=== PATIENT | female | born 1990 | race Caucasian/White ===

== ENCOUNTER → 2022-11-14 09:14 | Outpatient (BNVA) | payer BC, SELFPAY | PROVIDERS: Family Provider Family Medicine; PCP Family Medicine; Visit Provider Obstetrics & Gynecology | DX: Z30.9 Encounter for contraceptive management, unspecified (principal) | CPT/HCPCS: 87070; 87205 ==

== ENCOUNTER → 2022-12-02 12:07 | Outpatient (BNVA) | payer BC, MEDICAID, SELFPAY | PROVIDERS: Family Provider Family Medicine; PCP Family Medicine; Visit Provider Obstetrics & Gynecology | DX: N93.9 Abnormal uterine and vaginal bleeding, unspecified (principal); N85.2 Hypertrophy of uterus | CPT/HCPCS: 76830 ==

== ENCOUNTER 2023-02-16 12:00 | Outpatient (CLI) | payer BC, MEDICAID, SELFPAY | END 2023-02-16 12:01 | disposition home or self-care (01) | LOC: SLEEP 02-17 15:21 | PROVIDERS: Family Provider Family Medicine; PCP Family Medicine; Visit Provider Family Medicine | DX: R40.0 Somnolence (principal); G47.33 Obstructive sleep apnea (adult) (pediatric) | CPT/HCPCS: G0399 ==

== ENCOUNTER 2023-03-03 11:28 | Day surgery (SDC) | payer BC, MEDICAID, SELFPAY ==
[2023-03-02 09:01] VITALS: BMI 61.9
[2023-03-03] VITALS (8 sets, daily range): BP systolic 107–152; BP diastolic 79–97; PULSE 75–92; RESP 14–18; TEMP 36.2–36.4; O2SAT 91–99
[2023-03-03 12:06] LABS: OR HCG Qualitative Urine Negative (Negative)
[2023-03-03] MEDS: sodium chloride 0.9% 1,000 ML 30 ML IV (12:38)
--- NOTE | 2023-03-03 13:03 | ANES.PREANE2 ---
Pre-Anesthetic Assessment Height/Weight: Height 1.6 m Weight 158.757 kg Temp Pulse Resp BP Pulse Ox O2 Del Method 97.4 F L 90 18 136/85 96 Room Air 03/03/23 12:02 03/03/23 12:02 03/03/23 12:02 03/03/23 12:02 03/03/23 12:02 03/03/23 12:02 Preop Diagnosis: AUB Operation Date: 03/03/23 12:50 Proposed Procedures p Hysteroscopy, dilation and curettage with [place] [id number], N93.9(Not Applicable) - Nadira Vigil MD s Dilation And Curettage (D&C)(Not Applicable) - Nadira Vigil MD Was Beta Chevy taken within 24 hours: Yes Last intake: Intake Last Liquid Date 03/02/23 Last Liquid Time 22:30 Last Solid Date 03/02/23 Last Solid Time 22:30 Social Tobacco and No alcohol Exam alert, oriented x 3, clear to auscultation bilaterally and regular rate & rhythm Airway Submandibular: within normal limits Cervical ROM: within normal limits Mallampati: Class II Dentition: full Pulmonary Chronic Obstructive Pulmonary Disease and Sleep Apnea CV/HEM Hypertension Neuropsych Anxiety and Depression Anesthetic Plan ASA status: 3 Anesthesia: General Medications/Allergies Home Medications Medication Instructions Recorded Confirmed Last Taken Type albuterol sulfate 90 mcg/actuation 2 puff inhalation Q6H PRN 12/17/22 03/03/23 03/03/23 Rx aerosol inhaler (Ventolin HFA) shortness of breath or wheezing #8.5 grams fluticasone propionate 50 1 spray intranasal DAILY #16 grams 12/17/22 03/02/23 03/02/23 Rx mcg/actuation nasal spray,suspension fluoxetine 40 mg capsule 40 mg PO QAM #30 caps 01/27/23 03/02/23 03/02/23 Rx propranolol 20 mg tablet 20 mg PO BID PRN anxiety #60 tabs 01/27/23 03/03/23 03/02/23 Rx Allergies Allergy/AdvReac Type Severity Reaction Status Date / Time amoxicillin Allergy Intermediate rash Verified 02/26/23 07:47 lamotrigine [From Lamictal] Allergy Intermediate rash Verified 02/26/23 07:47 Penicillins Allergy Intermediate rash Verified 02/26/23 07:47 Current Medications Generic Name Dose Route Start Last Admin Trade Name Freq PRN Reason Stop Dose Admin Sodium Chloride 1,000 mls @ 30 mls/hr 03/03/23 11:45 03/03/23 12:38 Sodium Chloride 0.9% IV 03/04/23 11:44 30 mls/hr .Q24H DWAYNE Administration PFSH Anesthesia Medical History ADHD (attention deficit hyperactivity disorder) Anxiety Borderline personality disorder Depressed History of kidney stones Psychiatric care Surgical History History of D&C History of tonsillectomy Family History Grandmother Diabetes Sister Hypercholesteremia Hypertension Father Hypercholesteremia Hypertension Grandfather Stroke Denies family history of Colon cancer Ovarian cancer Heart disease Breast cancer Uterine cancer Thyroid disease Female Reproductive History Date of last menstrual period: 03/02/23 Data Anesthesia Cardiac Studies: No Data to Display
--- NOTE | 2023-03-03 13:23 | W.PM.OPSUD ---
Surgery/Procedure H&P Update DATE OF PROCEDURE: March 03, 2023 DATE H&P PERFORMED: 02/26/23 H&P UPDATE INFORMATION: I have reviewed H&P completed within last 30 days, I have examined patient prior to procedure and No changes to prior documentation PREOP DIAGNOSIS: AUB PLANNED PROCEDURE: Operation Date: 03/03/23 12:50 Proposed Procedures p Hysteroscopy, dilation and curettage with [place]aina [id number], N93.9(Not Applicable) - Nadira Vigil MD s Dilation And Curettage (D&C)(Not Applicable) - Nadira Vigil MD Related Problem List Diagnoses (1) Abnormal uterine bleeding (AUB): (2) Morbid obesity with BMI of 60.0-69.9, adult:
[2023-03-03] MEDS: ceFAZolin 3,000 MG in sodium chloride 0.9% (100 ml) 100 ML 200 MG IV (13:58)
--- NOTE | 2023-03-03 14:35 | ANE.PACU2 ---
Inpatient post-anesthesia follow up: Airway intact: Yes Vital signs: Temperature 97.4 F Pulse Rate 90 Respiratory Rate 18 Blood Pressure 136/85 Pulse Oximetry 96 Oxygen Delivery Me thod Room Air Oxygen Flow Rate Fraction of Inspir ed Oxygen Hydration adequate: Yes Nausea and vomiting: No Pain level: 3 Mental status: Baseline
--- NOTE | 2023-03-03 14:40 | P.OP_ITS ---
Operative Report Date of procedure: March 03, 2023 Pre-op diagnosis: Preop Diagnosis AUB Post-op diagnosis: same Procedure done: hysteroscopy, D&C, myosure Specimens removed/disposition: endometrial curettings to pathology Surgeon: Nadira Vigil Anesthesia: General Estimated blood loss (mL): 0 IV fluids (mL): 700 Complications: none Findings: 8 week sized uterus with excessive tissue Condition: stable Disposition: PACU Procedure: The patient was taken to the operating room where monitored anesthesia was administered and to be adequate. She was prepped and draped in the normal sterile fashion in the dorsal lithotomy position in [facility]. A weighted speculum was placed into the vagina and the anterior lip of the cervix grasped with a single-tooth tenaculum. The uterus was sounded to 8 cm. The cervix was dilated to 16 Romansh. The hysteroscope was advanced into the endometrial cavity. There was excessive tissue visualized. The MyoSure device was activated and the tissue was removed. Pictures were taken pre and post procedure. All instruments were removed. The patient tolerated the procedure well. Sponge lap and needle counts were correct x3. She was taken to the recovery room in stable condition.
--- NOTE | 2023-03-03 14:43 | PM.DCS ---
Discharge Providers Date of Admission: 03/03/23 Date of Discharge: March 03, 2023 Attending Provider at Discharge: Nadira Vigil MD Primary Care Provider: Obi Alegre MD Diagnoses at Discharge Discharge Diagnosis (1) Abnormal uterine bleeding (AUB): Status: Acute (2) Morbid obesity with BMI of 60.0-69.9, adult: Status: Acute Reason for Visit Reason for Visit: N93.9 Hospital Course Hospital Course The patient was admitted for surgery. She did well postoperatively and was ready for discharge. Discharge Data Studies Completed and Pending Laboratory Results Urine HCG, Qual Negative (Negative) 03/03/23 11:49 Vitals Last Vital Signs Temp 97.4 F L 03/03/23 12:02 Pulse 90 03/03/23 12:02 Resp 18 03/03/23 12:02 BP 136/85 03/03/23 12:02 Pulse Ox 96 03/03/23 12:02 O2 Del Method Room Air 03/03/23 12:02 Discharge Plan Discharge Patient Disposition: Home Condition: Stable Prescriptions: Continued fluticasone propionate 50 mcg/actuation spray,suspension 1 spray intranasal DAILY Qty: 16 3RF Rx Instructions: administer into each nostril albuterol sulfate [Ventolin HFA] 90 mcg/actuation HFA aerosol inhaler 2 puff inhalation Q6H PRN (Reason: shortness of breath or wheezing) Qty: 8.5 3RF fluoxetine 40 mg capsule 40 mg PO QAM Qty: 30 1RF propranolol 20 mg tablet 20 mg PO BID PRN (Reason: anxiety) Qty: 60 1RF Discharge Orders: Discharge Order (Routine); Ordered 03/03/23 Ordered By: Nadira Vigil Discharge Attestations Time Spent in Discharge Care*: less than 30 min Quality Metrics Clinical Quality Measures [ No reported AMI, CVA or VTE this stay] Coding Level of Care Code Acute Code for Chg Fwd Diagnoses Abnormal uterine bleeding (AUB) N93.9 Morbid obesity with BMI of 60.0-69.9, adult E66.01; Z68.44
== END 2023-03-03 15:57 | disposition home or self-care (01) ==
PROVIDERS: PCP Family Medicine; Visit Provider Obstetrics & Gynecology
PROC: 0UDB8ZZ Extraction of Endometrium, Via Natural or Artificial Opening Endoscopic (ICD-10-PCS; CPT 58558; principal; 2023-03-03 12:40)
PROC: (CPT 58120; 2023-03-03 12:40)
DX: N85.00 Endometrial hyperplasia, unspecified (principal); N93.9 Abnormal uterine and vaginal bleeding, unspecified; I10 Essential (primary) hypertension; J44.9 Chronic obstructive pulmonary disease, unspecified; E66.01 Morbid (severe) obesity due to excess calories; Z68.44 Body mass index [BMI] 60.0-69.9, adult; Z79.51 Long term (current) use of inhaled steroids; Z88.0 Allergy status to penicillin; F17.210 Nicotine dependence, cigarettes, uncomplicated
CPT/HCPCS: 58558; 81025; 84703; 88305; J0330; J0690; J1100; J1200; J1885; J2405; J2704; J7030

== ENCOUNTER → 2023-07-10 13:25 | Outpatient (BNVA) | payer BC, MEDICAID, SELFPAY | PROVIDERS: PCP Family Medicine; Visit Provider Nurse Practitioner Women's Health | DX: Z12.4 Encounter for screening for malignant neoplasm of cervix (principal) | CPT/HCPCS: 87624 ==

== ENCOUNTER 2024-05-18 15:29 | Outpatient (CLI) | payer MEDICAID, SELFPAY ==
[2024-05-18 16:37] LABS: D Dimer 0.36 ug/mLFEU (0-0.59)
== END 2024-05-18 15:30 | disposition home or self-care (01) ==
LOC: LAB 15:30
PROVIDERS: Clinical Nurse Specialist Adult Health; PCP Family Medicine; Visit Provider Family Medicine
DX: M79.661 Pain in right lower leg (principal)
CPT/HCPCS: 36415; 85378

== ENCOUNTER → 2024-06-24 10:07 | Outpatient (BNVA) | payer MEDICAID, SELFPAY | PROVIDERS: PCP Family Medicine; Visit Provider Psychiatry & Neurology Psychiatry | DX: Z79.899 Other long term (current) drug therapy (principal); F60.3 Borderline personality disorder; F12.20 Cannabis dependence, uncomplicated; F41.1 Generalized anxiety disorder; F33.2 Major depressive disorder, recurrent severe without psychotic features | CPT/HCPCS: 80053; 80061; 83036; 84443; 85025 ==

== ENCOUNTER → 2025-06-29 13:56 | Outpatient (BNVA) | payer BC, MEDICAID, SELFPAY | PROVIDERS: PCP Family Medicine; Visit Provider Family Medicine | DX: Z20.2 Contact with and (suspected) exposure to infections with a predominantly sexual mode of transmission (principal) | CPT/HCPCS: 80074; 87491; 87591; 87806 ==